=== PATIENT | female | born 1990 | race Caucasian/White ===

== ENCOUNTER 2019-04-19 13:31 | Emergency (ER) | payer OTHER ==
[~2019-04-19] VITALS: Ht 167.6 cm; Wt 75.0 kg
[2019-04-19 13:51] VITALS: BP 161/92
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
--- NOTE | 2019-04-19 14:15 | NUR ---
REPORT TO PRIMARY RNKAYLAH.
--- NOTE | 2019-04-19 14:24 | NUR ---
PT PICKED UP BY BENJAMIN
--- NOTE | 2019-04-19 14:40 | NUR ---
PT BACK FROM RAD
[2019-04-19] MEDS ORDERED: IBUPROFEN 600 MG TAB PO ONE (14:55)
[2019-04-19 15:07] VITALS: BP 161/92
== END 2019-04-19 15:07 | disposition home or self-care (01) ==
LOC: MED 13:31
DX: R68.84 Jaw pain (principal); R51 Headache
CPT/HCPCS: 70110; 99283; Q0092

== ENCOUNTER 2019-07-25 14:13 | Emergency (ER) | payer OTHER, SELFPAY ==
[~2019-07-25] VITALS: Ht 165.1 cm; Wt 63.5 kg
--- NOTE | 2019-07-25 14:13 | NUR ---
KAUSHIK ROGERS AND PLACED IN BED 7. KADIE FAY AT BEDSIDE.
[2019-07-25 14:16] VITALS: BP 157/107
[2019-07-25] MEDS ORDERED: LORazepam 2 MG/ML VIAL IVP ONE (14:30)
[2019-07-25] MEDS ORDERED: ONDANSETRON 4 MG/2 ML VIAL IVP ONE (14:30)
[2019-07-25] MEDS ORDERED: KETOROLAC 30 MG/ML VIAL IVP ONE (14:50)
--- NOTE | 2019-07-25 14:50 | NUR ---
HAROON FROM URGENT CARE FOR HYPERVENTILATING/ANXIETY. WAS SEEN AT [facility] FOR TOOTH ABSCESS AND GIVEN PRESCRIPTION FOR AUGMENTIN AND NORCO, NOT YET FILLED. PT VERY ANXIOUS APPEARING. HR 118. STATES SHE FEELS "SCARED" BECAUSE HER FAMILY HAS A HX OF BLOOD CLOTS. PMH- ANEMIA, HEART MURMUR, APPENDECTOMY
--- NOTE | 2019-07-25 14:54 | NUR ---
MEDS GIVEN BY NYA ENGLE
--- NOTE | 2019-07-25 14:54 | NUR ---
IV INSERTED, ZOFRAN AND ATIVAN IVP ADMINISTERED
--- NOTE | 2019-07-25 14:59 | NUR ---
PT C/O SPINE PAIN 6-09/11, TORADOL IVP ADMINISTERED
--- NOTE | 2019-07-25 15:00 | NUR ---
PT GIVEN WATER , STATES UNABLE TO PROVIDE URINE AT THIS TIME
--- NOTE | 2019-07-25 15:19 | NUR ---
LAB AT BEDSIDE
--- NOTE | 2019-07-25 15:24 | NUR ---
PT ASSISTED TO RESTROOM, PT AMB
--- NOTE | 2019-07-25 15:32 | NUR ---
URINE PREG NEG, CT INFORMED
--- NOTE | 2019-07-25 15:34 | NUR ---
NADR. PT STATES NO PAIN NOW. PT LESS ANXIOUS APPEARING. PT DENIES NAUSEA NOW.
--- NOTE | 2019-07-25 15:36 | NUR ---
PT TO CT VIA WHEELCHAIR
--- NOTE | 2019-07-25 15:43 | NUR ---
PT RETURNED FROM CT
[2019-07-25 16:00] LABS: BASOPHILS % (AUTO) 0.6 % (0.0-2.0); EOSINOPHILS % (AUTO) 0.4 % (0.0-4.0); HEMATOCRIT 40.3 % (36-48); LYMPHOCYTES # (AUTO) 2.3 K/uL (2.5-16.5); LYMPHOCYTES % (AUTO) 32.3 % (20.5-51.1); MEAN CORPUSCULAR HEMOGLOBIN 29 pg (27-31); MEAN CORPUSCULAR HGB CONC 35 g/dL (33-37); MEAN CORPUSCULAR VOLUME 82.3 fL (80-94); MONOCYTES # (AUTO) 0.5 K/uL (0.8-1.0); MONOCYTES % (AUTO) 6.5 % (1.7-9.3); NEUTROPHILS # (AUTO) 4.3 K/uL (1.8-7.7); NEUTROPHILS % (AUTO) 60.2 % (42.2-75.2); PLATELET COUNT (AUTO) 203 K/uL (140-450); RED CELL DISTRIBUTION WIDTH 12.4 % (11.6-13.7); WHITE BLOOD COUNT (AUTO) 7.2 K/uL (4.8-10.8)
[2019-07-25 16:17] LABS: APPEARANCE,URINE SL CLOUDY (CLEAR); BILIRUBIN,URINE 1+ (NEGATIVE); BLOOD, URINE 2+ (NEGATIVE); COLOR,URINE YELLOW (YELLOW); LEUKOCYTE ESTERASE ,URINE TRACE (NEGATIVE); NITRITE, URINE NEGATIVE (NEGATIVE); UGLUCOSE NEGATIVE (NEGATIVE)
[2019-07-25 16:18] LABS: ALBUMIN 3.4 g/dL (3.4-5.0); ANION GAP 13.8 (8-16); CARBON DIOXIDE 24.8 mmol/L (21-32); CREATININE 0.8 mg/dL (0.6-1.3); TOTAL BILIRUBIN 0.6 mg/dL (0.0-1.0)
[2019-07-25 16:20] LABS: POTASSIUM 2.6 mmol/L (3.5-5.1)
--- NOTE | 2019-07-25 16:20 | NUR ---
POTASSIUM 2.6
[2019-07-25] MEDS ORDERED: POTASSIUM CHLORIDE 10 MEQ TABER PO ONE (16:25)
[2019-07-25 16:31] LABS: BARBITURATE, URINE NEGATIVE ng/ml (NEG <=200); BENZODIAZEPINE, URINE NEGATIVE ng/mL (NEG <=200); CANNABINOID, URINE NEGATIVE ng/mL (NEG <=50); COCAINE, URINE NEGATIVE ng/mL (NEG <=300); OPIATE, URINE POSITIVE ng/mL (NEG <=2000); PHENCYCLIDINE SCREEN,URINE NEGATIVE ng/mL (NEG <=25)
--- NOTE | 2019-07-25 16:40 | NUR ---
RETURNED FROM CT
[2019-07-25] MEDS ORDERED: LEVOFLOXACIN 500 MG TAB PO ONE (17:00)
--- NOTE | 2019-07-25 17:14 | NUR ---
LEVOQUIN ADMINISTERED
--- NOTE | 2019-07-25 17:22 | NUR ---
COVID SWAB COLLECTED
--- NOTE | 2019-07-25 17:30 | NUR ---
NADR, PAIN 0/10
--- NOTE | 2019-07-25 17:36 | NUR ---
PT CALLED HER MOTHER, MOTHER IS ON THE WAY TO PICK HER UP FROM ER
[2019-07-25 17:38] VITALS: BP 122/88
--- NOTE | 2019-07-25 17:38 | NUR ---
Patient discharged with v/s stable. Written and verbal after care instructions given and explained. Patient alert, oriented and verbalized understanding of instructions. Ambulatory with steady gait. All questions addressed prior to discharge. ID band removed. Patient advised to follow up with PMD. Rx of LEVAQUIN given. Patient educated on indication of medication including possible reaction and side effects. Opportunity to ask questions provided and answered. PT INSTRUCTED TO EAT MORE POTASSIUM RICH FOODS. PT GIVEN EXCUSE FOR WORK PT GIVEN INSTRUCTIONS ON SOCIAL DISTANCING AND GUIDELINES TO COVID.
--- NOTE | 2019-07-25 17:43 | NUR ---
PT WALKED OUTSIDE WITH ASSISTANCE WHERE SHE STATES SHE WANTS TO WAIT FOR HER MTOHER TO PICK HER UP
--- NOTE | 2019-07-26 17:35 | NUR ---
RECEIVED POSITIVE COVID RESULT FROM LAB, PTS CHART WILL BE SENT TO INFECTIOUS DISEASES MAILBOX.
== END 2019-07-25 17:38 | disposition home or self-care (01) ==
LOC: MED 14:13 → EEVIPCON 14:13 → MED 17:38
DX: J18.9 Pneumonia, unspecified organism (principal); E87.6 Hypokalemia; F15.90 Other stimulant use, unspecified, uncomplicated; Z98.890 Other specified postprocedural states; Z79.899 Other long term (current) drug therapy; Z20.828 Contact with and (suspected) exposure to other viral communicable diseases
CPT/HCPCS: 36415; 71045; 71250; 74176; 80053; 80305; 81001; 81025; 84484; 85025; 87086; 87804; 93005; 96374; 96375; 99285; C9803; J1885; J2060; J2405; Q0092; U0003

== ENCOUNTER 2019-07-26 20:06 | Emergency (ER) | payer OTHER, SELFPAY ==
[~2019-07-26] VITALS: Ht 167.6 cm; Wt 77.1 kg
--- NOTE | 2019-07-26 20:07 | NUR ---
PT W/C TO ER BED 2
[2019-07-26 20:41] VITALS: BP 126/91
--- NOTE | 2019-07-26 20:45 | NUR ---
AT BEDSIDE EXAMINING PT WITH PROPER PPE
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
--- NOTE | 2019-07-26 20:50 | NUR ---
DR. BRYANT BEDSIDE EVALUATING PT
[2019-07-26] MEDS ORDERED: NACL 0.9% 1,000 ML IV ONE (21:00)
[2019-07-26] MEDS ORDERED: METOCLOPRAMIDE 10 MG/2 ML INJ VIAL IVP ONE (21:00)
[2019-07-26] MEDS ORDERED: ACETAMINOPHEN EXTRA STRENGTH 500 MG TAB PO ONE (21:00)
--- NOTE | 2019-07-26 21:31 | NUR ---
GILLIAN RN DID EKG AT BEDSIDE
--- NOTE | 2019-07-26 21:40 | NUR ---
LAB AT BEDSIDE DRAWING ABG'S
--- NOTE | 2019-07-26 21:47 | NUR ---
URINE SAMPLE COLLECTED AND LAB PICKED UP FROM KADIE FRENCH
--- NOTE | 2019-07-26 22:01 | NUR ---
LABS DRAWN FROM IV START AND HANDED TO LAB
[2019-07-26 22:11] LABS: BILIRUBIN,URINE NEGATIVE (NEGATIVE); BLOOD, URINE 3+ (NEGATIVE); COLOR,URINE YELLOW (YELLOW); LEUKOCYTE ESTERASE ,URINE 1+ (NEGATIVE); NITRITE, URINE NEGATIVE (NEGATIVE); PH,URINE 5.5 (5.0-9.0); UGLUCOSE NEGATIVE (NEGATIVE)
[2019-07-26 22:12] LABS: BASOPHILS % (AUTO) 0.6 % (0.0-2.0); EOSINOPHILS # (AUTO) 0.1 K/uL (0-0.4); EOSINOPHILS % (AUTO) 1.8 % (0.0-4.0); HEMOGLOBIN 15.4 g/dL (12.0-16.0); LYMPHOCYTES # (AUTO) 2.1 K/uL (2.5-16.5); LYMPHOCYTES % (AUTO) 32.1 % (20.5-51.1); MEAN CORPUSCULAR HEMOGLOBIN 29 pg (27-31); MEAN CORPUSCULAR HGB CONC 35 g/dL (33-37); MEAN CORPUSCULAR VOLUME 82.8 fL (80-94); MONOCYTES # (AUTO) 0.3 K/uL (0.8-1.0); MONOCYTES % (AUTO) 3.9 % (1.7-9.3); NEUTROPHILS % (AUTO) 61.6 % (42.2-75.2); PLATELET COUNT (AUTO) 214 K/uL (140-450); RED BLOOD CELL COUNT(AUTO) 5.31 MIL/uL (4.20-5.40); RED CELL DISTRIBUTION WIDTH 12.7 % (11.6-13.7); WHITE BLOOD COUNT (AUTO) 6.4 K/uL (4.8-10.8)
[2019-07-26 22:15] LABS: APPEARANCE,URINE HAZY (CLEAR)
[2019-07-26 22:20] LABS: RBC,URINE 50-80 /HPF (0-5)
--- NOTE | 2019-07-26 22:20 | NUR ---
PT TAKEN TO CT VIA WHEELCHAIR
--- NOTE | 2019-07-26 22:32 | NUR ---
RETURNED FROM CT WITH PT IN WHEELCHAIR. VSS. WILL CONTINUE TO MONITOR.
--- NOTE | 2019-07-26 22:40 | NUR ---
PT SITTING IN BED IN POSITION OF COMFORT , BED LOW AND LOCKED, 2 SIDERAILS UP, VSS, WILL CONTINUE TO MONITOR, LIGHTS DIMMED.
[2019-07-26 22:48] LABS: ALBUMIN 4.1 g/dL (3.4-5.0); CARBON DIOXIDE 27.6 mmol/L (21-32); CREATININE 0.9 mg/dL (0.6-1.3); POTASSIUM 3.6 mmol/L (3.5-5.1); TOTAL BILIRUBIN 0.6 mg/dL (0.0-1.0)
--- NOTE | 2019-07-26 23:51 | NUR ---
PT RESTING IN BED IN POSITION OF COMFORT , BED LOW AND LOCKED, 2 SIDERAILS UP, VSS, WILL CONTINUE TO MONITOR, LIGHTS DIMMED.
--- NOTE | 2019-07-27 00:58 | NUR ---
PT ASLEEP IN BED IN POSITION OF COMFORT , BED LOW AND LOCKED, 2 SIDERAILS UP, VSS, WILL CONTINUE TO MONITOR, LIGHTS DIMMED.
[2019-07-27 01:33] VITALS: BP 104/74
--- NOTE | 2019-07-27 01:33 | NUR ---
Patient discharged with v/s stable. Written and verbal after care instructions given and explained. Patient alert, oriented and verbalized understanding of instructions. Ambulatory with steady gait. All questions addressed prior to discharge. ID band removed. Patient advised to follow up with PMD. Rx of REGLAN given. Patient educated on indication of medication including possible reaction and side effects. Opportunity to ask questions provided and answered.
== END 2019-07-27 01:33 | disposition home or self-care (01) ==
LOC: MED 20:06 → EEVIPCON 20:06 → MED 07-27 01:33
DX: G43.909 Migraine, unspecified, not intractable, without status migrainosus (principal); R06.02 Shortness of breath; Z90.49 Acquired absence of other specified parts of digestive tract
CPT/HCPCS: 36415; 36600; 70496; 80053; 81001; 82803; 84484; 85025; 87040; 87086; 93005; 96374; 99285; J2765; J7030; Q9967

== ENCOUNTER 2020-10-20 08:48 | Emergency (ER) | payer MEDICAID, OTHER, SELFPAY ==
[~2020-10-20] VITALS: Ht 167.6 cm; Wt 61.2 kg
[2020-10-20 08:53] VITALS: BP 135/82
--- NOTE | 2020-10-20 09:55 | NUR ---
PT TAKEN TO BED 3.
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
[2020-10-20] MEDS ORDERED: TETRACAINE HCL/PF 0.5% OPTH 4 ML BTL OP ONE (10:30)
[2020-10-20] MEDS ORDERED: FLUORESCEIN OPTH STRIP 1 MG OP ONE (10:30)
--- NOTE | 2020-10-20 11:20 | NUR ---
Dr. Giles at the bedside.
--- NOTE | 2020-10-20 12:00 | NUR ---
Patient resting comfortably in bed, respirations even and unlabored, VSS, bed locked in the lowest position and call light within reach.
--- NOTE | 2020-10-20 13:00 | NUR ---
Patient resting comfortably in bed, respirations even and unlabored, VSS, bed locked in the lowest position and call light within reach.
[2020-10-20] MEDS ORDERED: SULF-58 PO (13:03)
[2020-10-20] MEDS ORDERED: AMOX-999 PO (13:03)
[2020-10-20] MEDS ORDERED: KETO5SOL OP (13:03)
[2020-10-20] MEDS ORDERED: ACET-8386 PO (13:03)
[2020-10-20] MEDS ORDERED: cefTRIAXone 1,000 MG in LIDOCAINE MPF 1% 2.1 ML IM ONE (13:10)
[2020-10-20] MEDS ORDERED: HYDROcodone/APAP 5/325 MG 1 TAB TAB PO ONE (13:10)
[2020-10-20] MEDS ORDERED: cefTRIAXone 1,000 MG VIAL ONE (13:17)
[2020-10-20] MEDS ORDERED: LIDOCAINE MPF 1% 5 ML ONE (13:18)
[2020-10-20 14:08] VITALS: BP 136/73
--- NOTE | 2020-10-20 14:08 | NUR ---
Patient discharged with v/s stable. Written and verbal after care instructions given and explained. Patient alert, oriented and verbalized understanding of instructions. Ambulatory with steady gait. All questions addressed prior to discharge. ID band removed. Patient advised to follow up with PMD. Rx of HYDROCODONE/ACETAMINOPHEN, AMOXICILLIN/POTASSIUM CLAV, KETOROLAC/TROMETHAMINE, SULFAMETHOXAZOLE/TRIMETHOPRIM given. Patient educated on indication of medication including possible reaction and side effects. Opportunity to ask questions provided and answered.
== END 2020-10-20 14:08 | disposition home or self-care (01) ==
LOC: MED 08:48
DX: L03.213 Periorbital cellulitis (principal)
CPT/HCPCS: 70480; 96372; 99284; J0696; J2001